=== PATIENT | male | born 2000 | race Caucasian/White ===

== ENCOUNTER 2024-12-31 21:36 | Emergency (ER) | payer OTHER, SELFPAY ==
[2024-12-31 21:44] VITALS: BP 145/93; PULSE 76; RESP 18; TEMP 36.2; O2SAT 100; BMI 31.9
--- NOTE | 2024-12-31 23:10 | EX.ED.DYSGE1 ---
HPI History of Present Illness Chief Complaint: Chest Other Detail of Chief Complaint: Intermittent trouble swallowing for 3 months. Informant: patient Onset/Context/Timing Onset: Month(s) Timing: Intermittent Current Severity: Mild Maximum Severity: Mild Narrative Narrative: 24-year-old male trouble swallowing for 3 months. He has been seen by GI in [facility], done in [facility]. He has been on different reflux medications including omeprazole, Carafate and famotidine. He is able to swallow. Says he is lost about 16 pounds of weight in the last 3 weeks. Denies any pain. No fever. No prior endoscopy or prior esophageal surgery. Prior similar symptoms: Yes Recent Illness/Hospitalization: No PFSH PFSH Medical History no medical history no medical history Home Medications ?Medication ?Instructions ?Recorded ?Last Taken ?Type famotidine 20 mg tablet (Acid 20 mg PO DAILY 12/31/24 Unknown History Controller) hyoscyamine sulfate 0.125 mg 0.125 mg PO Q8H 12/31/24 Unknown History tablet (Levsin) pantoprazole 40 mg tablet,delayed 40 mg PO DAILY 12/31/24 Unknown History release (Protonix) sucralfate 1 gram tablet 1 g PO BID 12/31/24 Unknown History Allergy/AdvReac Type Severity Reaction Status Date / Time No Known Allergies Allergy Verified 12/31/24 21:43 Social History Smoking Status: Never smoker ROS ROS ED ROS Narrative No recent illness. Trouble swallowing. Constitutional Constitutional ED: Denies chills or fever(s) Eyes Eyes: Denies blurry vision ENT ENT ED: Denies ear pain Cardiovascular Cardiovascular: Denies chest pain or palpitations Respiratory/Chest Respiratory/Chest: Denies cough or dyspnea Gastrointestinal Gastrointestinal: Denies abdominal pain Genitourinary Genitourinary ED: Denies dysuria or hematuria Musculoskeletal Musculoskeletal: Denies arthralgias or back pain Integumentary Denies abscess or Abrasions Neurologic Neurologic: Denies headache(s) Psychiatric Psychiatric: Denies anxiety or depression Endocrine Endocrinology: Denies cold intolerance Hematologic/Lymphatic Hematologic/Lymphatic: Reports none Allergic/Immunologic Allergic/Immunologic ED: Denies mouth swelling, tongue swelling or urticaria EXAM Physical Exam Narrative Exam Narrative: Well-appearing 24-year-old male. Vital signs stable afebrile. No distress. Pulse ox 100% on room air no hypoxia. H EENT exam pupils round reactive light. Moist mucous membranes. Posterior pharynx unremarkable. I gave him a glass of water and no trouble swallowing it. No trouble hanging his own secretions. No stridor or drooling. Neck nontender no lymphadenopathy. Trachea midline. Lungs clear to auscultation bilaterally. Heart regular rhythm no murmur. Abdomen soft, nontender, nondistended, normal bowel sounds without peritoneal signs. Moving all 4 extremities. Nontender no edema. Back nontender. Neurologically is awake alert. No focal motor deficits. Answering questions following commands. Const Vital Signs: 12/31/24 21:44 Temperature 97.2 F L Temperature Source Temporal Pulse Rate 76 Respiratory Rate 18 Blood Pressure 145/93 H Blood Pressure Mean 110 Pulse Ox 100 Oxygen Delivery Method Room Air Positive well nourished and well developed; Negative for cachectic, contractures or unkempt General Appearance ED: well developed and NAD; Negative for unkempt, cachectic, contractures, cyanotic, diaphoretic or pallor Nutritional Appearance: Negative for cachectic HEENT Reports moist mucous membranes Negative for trauma or tenderness Eyes PERRL and EOMs intact bilaterally Neck no lymphadenopathy, supple and no JVD Chest Wall inspection of chest normal and palpation of chest normal Resp normal respiratory effort and clear to auscultation bilaterally Cardio regular rate, regular rhythm, S1 normal heart sound, S2 normal heart sound and no murmurs GI normal to inspection, nondistended, normoactive bowel sounds, non-tender, non-distended and no masses Auscultation: normoactive bowel sounds Palpation: soft; Negative for tender, guarding or rebound tenderness present Back/Spine no CVA tenderness Extremity normal to inspection General Extremety ED: Negative for edema or tenderness General Extremity: Negative for edema Neuro oriented x3 and CN's II-XII intact bilaterally Sensorium / Orientation: alert; Negative for orientation impaired, lethargic or stuporous Motor Exam: strength 5/5 throughout Psych mental status grossly normal Appearance: Negative for unkempt Skin no rashes or lesions noted, no wounds and skin turgor normal General Skin Exam: elasticity normal; Negative for jaundice or pallor Lesions: No lesion noted Rashes: No rashes noted Trauma: Negative for abrasion Wounds: Negative for wounds noted MDM MDM MDM Narrative Medical decision making narrative: 24-year-old male difficulty in swallowing for 2 to 3 months. Weight loss. He can swallow easily a glass of water. He is handling his own secretions. He has no acute obstruction. He has already been on antireflux medications. He has those at home. He is already seen GI. Follow-up with either our GI or our general surgeon to see if he can get in sooner for possible upper endoscopy if they feels necessary. Patient is comfortable with the plan. He understands there is no specific testing to do tonight in the emergency department. Clinically looks well. He does not need labs. Discharge Plan Triage Chief Complaint: Chest Other ED Provider: Terry Santos Dx/Rx/DC Orders Clinical Impression: Trouble swallowing Instructions: ED Dysphagia (Adult) Prescriptions: No Action pantoprazole [Protonix] 40 mg tablet,delayed release (DR/EC) 40 mg PO DAILY sucralfate 1 gram tablet 1 g PO BID famotidine [Acid Controller] 20 mg tablet 20 mg PO DAILY hyoscyamine sulfate [Levsin] 0.125 mg tablet 0.125 mg PO Q8H Referrals: Lex Walker MD [Med Staff - Active Staff] - As soon as possible Friend,DO Joaquin [Med Staff - Active Staff] - As soon as possible Activity Restrictions/Additional Instructions: Continue your current medications. Drink plenty of fluids. Cut your food up into very small pieces. Chew thoroughly. Call both the general surgeon and/or the nut processing supervisor to see when and get you in her office and possibly get you scoped. If you get food stuck and physically cannot get it down return. Print Language: [place] Disposition Disposition: Home, Self Care
[2024-12-31 23:22] VITALS: BP 136/68; PULSE 77; RESP 18; TEMP 36.3; O2SAT 98
== END 2024-12-31 23:23 | disposition home or self-care (01) ==
LOC: ED 23:18
PROVIDERS: Emergency Provider Emergency Medicine; PCP Nurse Practitioner Adult Health; Visit Provider Emergency Medicine
DX: R13.10 Dysphagia, unspecified (principal)
CPT/HCPCS: 99282